=== PATIENT | male | born 1950 | race Caucasian/White ===

== ENCOUNTER 2024-04-15 13:42 | Inpatient (IN) | payer MEDICARE, OTHER ==
[~2024-04-15] VITALS: Ht 177.8 cm; Wt 95.8 kg
[2024-04-15] MEDS: NS 1,000 ML IV SCH (15:00)
[2024-04-15 16:31] LABS: BASO % 0.4 % (0.0-1.0); EOS # 0.2 10^3/uL (0.0-0.5); EOS % 2.7 % (0.0-3.0); HEMATOCRIT 41.3 % (42.0-52.0); HEMOGLOBIN 14.1 g/dl (13.5-17.5); LYMPH # 1.7 10^3/uL (1.5-5.0); LYMPH % 21.9 % (24.0-44.0); MEAN CORPUSCULAR HEMOGLOBIN 32.1 pg (27.0-33.0); MEAN CORPUSCULAR HGB CONC 34.1 g/dl (32.0-36.5); MEAN CORPUSCULAR VOLUME 94.1 fl (80.0-96.0); MONO # 0.7 10^3/uL (0.0-0.8); MONO % 8.7 % (2.0-8.0); NEUTROPHILS # 5.2 10^3/uL (1.5-8.5); NEUTROPHILS % 65.8 % (36.0-66.0); PLATELET COUNT, AUTOMATED 161 10^3/uL (150-450); RED BLOOD COUNT 4.39 10^6/uL (4.30-6.10); WHITE BLOOD COUNT 7.8 10^3/uL (4.0-10.0)
[2024-04-15 16:50] LABS: BLOOD UREA NITROGEN 16 MG/DL (9-23); CALCIUM LEVEL 9.4 MG/DL (8.3-10.6); CARBON DIOXIDE LEVEL 28 MMOL/L (20-31); CHLORIDE LEVEL 107 MMOL/L (98-107); CREATININE FOR GFR 0.75 MG/DL (0.70-1.30); GLOMERULAR FILTRATION RATE > 60.0 (>42); GLUCOSE, FASTING 99 MG/DL (74-106); POTASSIUM SERUM 3.9 MMOL/L (3.5-5.1); SODIUM LEVEL 141 MMOL/L (136-145)
[2024-04-15 16:52] LABS: VITAMIN B12 LEVEL 800 PG/ML (211-911)
[2024-04-15] MEDS ORDERED: PROHANCE 279.3MG/ML 5ML VIAL As Ordered ONE (17:51)
[2024-04-15] MEDS ORDERED: PROHANCE 279.3MG/ML 15ML VIAL As Ordered ONE (17:52)
[2024-04-15] MEDS ORDERED: VITA100093 PO (22:13)
[2024-04-15] MEDS ORDERED: OMEP1CAP73 PO (22:13)
[2024-04-15] MEDS ORDERED: SIMV20TA22 PO (22:13)
[2024-04-15] MEDS ORDERED: LISI20TA33 PO (22:13)
[2024-04-15] MEDS ORDERED: METF-839 PO (22:13)
[2024-04-15] MEDS ORDERED: CYAN-1 PO (22:13)
[2024-04-15] MEDS ORDERED: OCUVTAB8 PO (22:13)
[2024-04-15] MEDS ORDERED: MAGN400T35 PO (22:13)
[2024-04-15] MEDS ORDERED: HOME MED LIST COMPLETE! XX SCH (22:15)
[2024-04-15] MEDS ORDERED: GLUCOSE 4 GM CHEW PO PRN (23:05)
[2024-04-15] MEDS ORDERED: ACETAMINOPHEN TAB 650MG DOSE (2X325MG) PO PRN (23:05)
[2024-04-15] MEDS ORDERED: GLUCAGON INJ 1MG VIAL SC PRN (23:05)
[2024-04-15] MEDS ORDERED: DEXTROSE 50% 50ML SYRINGE IV PRN (23:05)
[2024-04-15] MEDS ORDERED: MOM 30ML SUSPENSION UDC PO PRN (23:05)
[2024-04-16 00:40] VITALS: BP 131/74
[2024-04-16] MEDS: SIMVASTATIN 10 MG TAB PO SCH (00:41)
[2024-04-16 05:43] LABS: HEMATOCRIT 38.5 % (42.0-52.0); HEMOGLOBIN 13.4 g/dl (13.5-17.5); MEAN CORPUSCULAR HEMOGLOBIN 32.6 pg (27.0-33.0); MEAN CORPUSCULAR HGB CONC 34.8 g/dl (32.0-36.5); MEAN CORPUSCULAR VOLUME 93.7 fl (80.0-96.0); PLATELET COUNT, AUTOMATED 143 10^3/uL (150-450); RED BLOOD COUNT 4.11 10^6/uL (4.30-6.10)
[2024-04-16 06:09] LABS: ALBUMIN 3.5 G/DL (3.2-5.2); ALKALINE PHOSPHATASE 45 U/L (46-116); ALT/SGPT 21 U/L (7.0-40); AST/SGOT 13 U/L (<34); BLOOD UREA NITROGEN 12 MG/DL (9-23); CALCIUM LEVEL 8.3 MG/DL (8.3-10.6); CARBON DIOXIDE LEVEL 26 MMOL/L (20-31); CHLORIDE LEVEL 110 MMOL/L (98-107); CREATININE FOR GFR 0.66 MG/DL (0.70-1.30); GLOMERULAR FILTRATION RATE > 60.0 (>42); GLUCOSE, FASTING 104 MG/DL (74-106); POTASSIUM SERUM 3.8 MMOL/L (3.5-5.1); SODIUM LEVEL 142 MMOL/L (136-145); TOTAL PROTEIN 5.4 G/DL (5.7-8.2)
[2024-04-16] MEDS: INSULIN LISPRO (NovoLOG) PER UNIT SC SCH (07:30)
[2024-04-16] MEDS: MAGNESIUM OXIDE 400MG TAB (MAG-OX) PO SCH (08:57)
[2024-04-16] MEDS: OCUVITE 1 TAB PO SCH (08:57)
[2024-04-16] MEDS: VITAMIN D 1,000 INTERNATIONAL UNITS TABLET PO SCH (08:57)
[2024-04-16] MEDS: OMEPRAZOLE 20MG CAP PO SCH (08:57)
[2024-04-16] MEDS: ENOXAPARIN 40MG/0.4ML SYRINGE (J1650 PER 10MG) SC SCH (08:57)
[2024-04-16 10:49] LABS: THYROID STIMULATING HORMONE 1.287 uIU/ML (0.55-4.78)
[2024-04-16 14:35] VITALS: BP 101/54; TEMP 97.5; O2SAT 95
[2024-04-16] MEDS ORDERED: SIMVASTATIN 10 MG TAB PO SCH (21:00)
[2024-04-16] MEDS ORDERED: INSULIN LISPRO (NovoLOG) PER UNIT SC SCH (21:00)
[2024-04-19 18:19] LABS: LYME TOTAL ANTIBODY CIA <= 0.90 Index (<=0.90)
[2024-04-19 19:22] LABS: COPPER PLASMA 100 mcg/dL (70-175)
[2024-04-21 17:13] LABS: VITAMIN B1 LEVEL WHOLE BLOOD 106 nmol/L (78-185)
[2024-04-22 04:06] LABS: CHROMIUM, WB <1.0 ng/mL (<3.0); COBALT, WB <1.0 ng/mL (<3.0)
== END 2024-04-16 17:20 | disposition home or self-care (01) | DRG 552 ==
LOC: M ED 13:42 → M ED INP 23:05 → M MS5PR 04-16 14:35
PROVIDERS: ADMIT Preventive Medicine Undersea and Hyperbaric Medicine; ATTEND Internal Medicine
DX: M47.812 Spondylosis without myelopathy or radiculopathy, cervical region (principal); E11.9 Type 2 diabetes mellitus without complications; I10 Essential (primary) hypertension; Z96.653 Presence of artificial knee joint, bilateral; E78.5 Hyperlipidemia, unspecified; M50.31 Other cervical disc degeneration, high cervical region; R53.1 Weakness; M21.372 Foot drop, left foot; R29.6 Repeated falls; M48.02 Spinal stenosis, cervical region; Z79.899 Other long term (current) drug therapy

== ENCOUNTER → 2024-05-01 | Outpatient (CLI) | payer MEDICARE, OTHER ==
[~2024-05-01] MED LIST: APAP325T4 PO; ASPE4PAD2 TOP; CYAN-1 PO; DOCU100C16 PO; LISI20TA33 PO; MAGN1TAB26 PO; MAGN400T35 PO; METF-839 PO; METH-1164 PO; OCUVTAB8 PO; OMEP1CAP73 PO; OXYC-517 PO; SIMV20TA22 PO; VITA100093 PO; med rec
== END ==
LOC: M SOG 09:09
PROVIDERS: ATTEND Orthopaedic Surgery
DX: M54.2 Cervicalgia (principal); M54.50 Low back pain, unspecified

== ENCOUNTER 2024-05-07 10:38 | Inpatient (IN) | payer MEDICARE, OTHER ==
[~2024-05-07] VITALS: Ht 177.8 cm; Wt 93.9 kg
[~2024-05-07 10:38] MED LIST changes: -APAP325T4 PO; -ASPE4PAD2 TOP; -DOCU100C16 PO; -MAGN1TAB26 PO; -METH-1164 PO; -OXYC-517 PO; -med rec
[2024-05-07 12:12] VITALS: BP 104/70; TEMP 97.8; O2SAT 96
[2024-05-07] MEDS ORDERED: PILL CUTTER 1 EACH XX PRN (14:55)
[2024-05-07] MEDS ORDERED: METH-1164 PO (15:22)
[2024-05-07] MEDS ORDERED: DOCU100C16 PO (15:22)
[2024-05-07] MEDS ORDERED: OXYC-517 PO (15:22)
[2024-05-07] MEDS ORDERED: APAP325T4 PO (15:22)
[2024-05-07] MEDS ORDERED: ASPE4PAD2 TOP (15:22)
[2024-05-07] MEDS ORDERED: MAGN1TAB26 PO (15:22)
[2024-05-07] MEDS ORDERED: med rec (15:26)
[2024-05-07] MEDS ORDERED: HOME MED LIST COMPLETE! XX SCH (15:30)
[2024-05-07] MEDS: oxyCODONE 5MG TAB PO PRN (15:32)
[2024-05-07 20:00] VITALS: BP 113/64; TEMP 98.2; O2SAT 96
[2024-05-07] MEDS: DOCUSATE SODIUM 100MG CAPSULE PO SCH (20:27)
[2024-05-07] MEDS: methocarbamoL 500 MG TAB PO PRN (20:27)
[2024-05-07] MEDS: GABAPENTIN 300 MG CAP PO SCH (20:27)
[2024-05-07] MEDS: SIMVASTATIN 10 MG TAB PO SCH (20:27)
[2024-05-08 04:00] VITALS: BP 125/86; TEMP 97; O2SAT 96
[2024-05-08 06:29] LABS: HEMOGLOBIN 10.7 g/dl (13.5-17.5); MEAN CORPUSCULAR HEMOGLOBIN 32.8 pg (27.0-33.0); MEAN CORPUSCULAR HGB CONC 34.5 g/dl (32.0-36.5); MEAN CORPUSCULAR VOLUME 95.1 fl (80.0-96.0); PLATELET COUNT, AUTOMATED 158 10^3/uL (150-450); RED BLOOD COUNT 3.26 10^6/uL (4.30-6.10); WHITE BLOOD COUNT 7.6 10^3/uL (4.0-10.0)
[2024-05-08 06:54] LABS: BLOOD UREA NITROGEN 13 MG/DL (9-23); CALCIUM LEVEL 8.4 MG/DL (8.3-10.6); CARBON DIOXIDE LEVEL 27 MMOL/L (20-31); CHLORIDE LEVEL 104 MMOL/L (98-107); CREATININE FOR GFR 0.66 MG/DL (0.70-1.30); GLOMERULAR FILTRATION RATE > 60.0 (>42); GLUCOSE, FASTING 135 MG/DL (74-106); MAGNESIUM LEVEL 1.9 MG/DL (1.8-2.4); SODIUM LEVEL 138 MMOL/L (136-145)
[2024-05-08] MEDS: metFORMIN (GLUCOPHAGE) 500MG TAB PO SCH (09:00)
[2024-05-08] MEDS: OMEPRAZOLE 20MG CAP PO SCH (09:00)
[2024-05-08] MEDS: MIRALAX *UNIT DOSE* 17GM PACKET PO SCH (09:00)
[2024-05-08] MEDS: VITAMIN D 1,000 INTERNATIONAL UNITS TABLET PO SCH (09:00)
[2024-05-08] MEDS ORDERED: LIDOCAINE 5% (LIDODERM) PATCH TD SCH (09:00)
[2024-05-08] MEDS: MAGNESIUM OXIDE 400MG TAB (MAG-OX) PO SCH (09:00)
[2024-05-08] MEDS: LIDOCAINE 5% (LIDODERM) PATCH TD SCH (09:01)
[2024-05-08] MEDS ORDERED: MOM 30ML SUSPENSION UDC PO PRN (10:10)
[2024-05-08 12:00] VITALS: BP 142/74; TEMP 98; O2SAT 97
[2024-05-08 20:00] VITALS: BP 90/58; TEMP 97.6; O2SAT 95
[2024-05-09 04:00] VITALS: BP 96/55; TEMP 97.1; O2SAT 94
[2024-05-09 10:09] LABS: PERCENT SATURATION 16.5 % (19.7-50.0)
[2024-05-09 10:13] LABS: FERRITIN 161.9 NG/ML (10.5-307.3); FOLATE 18.4 NG/ML (>5.4)
[2024-05-09 12:00] VITALS: BP 108/65; TEMP 98.4; O2SAT 94
[2024-05-09] MEDS: FERROUS SULFATE 325MG TAB PO SCH (16:25)
[2024-05-09] MEDS: methocarbamoL 500 MG TAB PO SCH (16:25)
[2024-05-09 20:00] VITALS: BP 100/51; TEMP 98; O2SAT 94
[2024-05-10 04:00] VITALS: BP 102/63; TEMP 97.7; O2SAT 94
[2024-05-10 12:00] VITALS: BP 106/70; TEMP 98.1; O2SAT 96
[2024-05-10] MEDS: GABAPENTIN 300 MG CAP PO SCH ×2 (14:50→20:29)
[2024-05-10 20:00] VITALS: BP 108/64; TEMP 98.3; O2SAT 96
[2024-05-11 04:00] VITALS: BP 107/69; TEMP 97.8; O2SAT 96
[2024-05-11] MEDS: oxyCODONE 5MG TAB PO PRN (04:18)
[2024-05-11] MEDS: lisinopriL 5 MG TAB PO SCH (07:14)
[2024-05-11] MEDS: ACETAMINOPHEN TAB 650MG DOSE (2X325MG) PO PRN (09:45)
[2024-05-11 12:00] VITALS: BP 111/64; TEMP 97.8; O2SAT 97
[2024-05-11 20:00] VITALS: BP 103/63; TEMP 98.1; O2SAT 95
[2024-05-12 04:10] VITALS: BP 113/62; TEMP 97.6; O2SAT 96
[2024-05-12 12:00] VITALS: BP 104/56; TEMP 97.4; O2SAT 94
[2024-05-12 20:00] VITALS: BP 96/60; TEMP 98.6; O2SAT 94
[2024-05-13 04:00] VITALS: BP 114/66; TEMP 97.2; O2SAT 96
[2024-05-13 07:48] VITALS: BP 109/69
[2024-05-13 12:00] VITALS: BP 110/64; TEMP 97.4
[2024-05-13] MEDS ORDERED: FERR1TAB8 PO (14:55)
[2024-05-13] MEDS ORDERED: METH-1164 PO (14:55)
[2024-05-13] MEDS ORDERED: GABA-282 PO (14:55)
[2024-05-13 20:00] VITALS: BP 99/52; TEMP 97.4; O2SAT 93
[2024-05-14 04:00] VITALS: BP 108/70; TEMP 97.8; O2SAT 96
[2024-05-14 12:00] VITALS: BP 112/70; TEMP 98; O2SAT 97
== END 2024-05-14 14:10 | disposition home or self-care (01) | DRG 552 ==
LOC: M PM&R 12:12
PROVIDERS: ADMIT Student in an Organized Health Care Education/Training Program; ATTEND Student in an Organized Health Care Education/Training Program
DX: M50.01 Cervical disc disorder with myelopathy, high cervical region (principal); M50.021 Cervical disc disorder at C4-C5 level with myelopathy; M50.022 Cervical disc disorder at C5-C6 level with myelopathy; M50.023 Cervical disc disorder at C6-C7 level with myelopathy; M48.02 Spinal stenosis, cervical region; M48.061 Spinal stenosis, lumbar region without neurogenic claudication; E11.9 Type 2 diabetes mellitus without complications; E78.5 Hyperlipidemia, unspecified; K21.9 Gastro-esophageal reflux disease without esophagitis; G56.03 Carpal tunnel syndrome, bilateral upper limbs; M21.372 Foot drop, left foot; D50.9 Iron deficiency anemia, unspecified; I10 Essential (primary) hypertension; K59.00 Constipation, unspecified; Z98.1 Arthrodesis status; Z96.653 Presence of artificial knee joint, bilateral; Z90.49 Acquired absence of other specified parts of digestive tract; Z74.1 Need for assistance with personal care; Z74.09 Other reduced mobility; Z79.84 Long term (current) use of oral hypoglycemic drugs; Z79.899 Other long term (current) drug therapy